=== PATIENT | female | born 1995 | race African-American/Black ===

== ENCOUNTER 2017-01-21 21:33 | Emergency (ER) | payer OTHER ==
--- NOTE | ~2017-01-21 | US106 ---
[facility] A Service of [facility] & [facility] RADIOLOGY TEXT RESULTS PATIENT: TONIE NICOLE LOCATION: [facility] : [birth year] UNIT #: [id number] AGE: [address]: Juma Molina MD SEX: F ORDER DR: [id number] [facility] [address] [place], [place] [address] [id number] E MR#: [id number] Acc #: [id number] NAME: TONIE NICOLE : 1995 SEX: F STUDY DATE/TIME: 01/21/2017 21:09 UNIT: [facility] ROOM: STUDY DESCRIPTION: US Preg Uterus Transvaginal Attending Physician: Juma Molina M.D. Ordering Physician: Juma Molina M.D. Primary Care Physician: Malik Carbone MEDICAL IMAGING REPORT This report is preliminary unless electronic signature is present EXAM ultrasound 01/21/2017 HISTORY 22-year-old female unsure of last menstrual period. Pelvic pain for 3 hours. No bleeding. Quantitative beta HCG 26,995. G5, P4, AB 0. COMPARISON None. FINDINGS Transabdominal imaging was performed for generalized visualization of pelvic structures while transvaginal imaging was performed for more detailed evaluation of the uterus and adnexa. The uterus measures approximately 6.4 x 5.4 x 8.5 cm. An intrauterine gestational sac with surrounding decidual reaction is seen. The gestational sac measures about 1.4 cm. A yolk sac is seen within it measuring about 1.3 cm. A pole with a crown rump length of approximately 4.1 mm is identified. There is a detectable heart rate in the range of 123 beats per minute. Crescentic hypoechoic focus is demonstrated just deep to the gestational sac, thought to represent a small subchorionic hemorrhage, measuring approximately 5 mm in thickness x 2 cm in length. The left ovary measures 3.4 x 1.9 x 3 cm without cystic or solid abnormality and demonstrates normal color and spectral Doppler flow. The right ovary measures 2.1 x 2.5 x 3.3 cm without cystic or solid abnormality and demonstrates normal color and spectral Doppler flow. No pelvic free fluid is identified. IMPRESSION 1. Single viable intrauterine with heart rate in the range of STS. [facility] A Service of [facility] RADIOLOGY TEXT RESULTS PATIENT: TONIE NICOLE LOCATION: [facility] : [birth year] UNIT #: [id number] AGE: [address]: Juma Molina MD SEX: F ORDER DR: 123 beats per minute. Estimated sonographic gestational age 6 weeks 3 days with estimated date of delivery 09/13/2017. 2. Small hypoechoic crescentic collection is seen just deep to the gestational sac and may represent an implantation bleed or small subchorionic hemorrhage measuring 5 mm in thickness x 2 cm in length. 3. Normal sonographic appearance of the ovaries with normal flow to each ovary. 4. No pelvic free fluid. Dictated by... Leda Le M.D. THIS IS AN ELECTRONICALLY VERIFIED REPORT Leda Le M.D. at 01/22/2017 10:03 PM EREN/delia TD: 01/22/2017 05:56 JOB #: [id number] MEDICAL IMAGING REPORT COPY
[2017-01-21 21:25] LABS: BASOPHIL% 0.6 % (0-2.5); EOSINOPHIL# 0.2 X10e3 (0-0.7); EOSINOPHIL% 2.5 % (0.0-7.0); HEMATOCRIT 32.3 % (35.0-45.0); HEMOGLOBIN 10.1 gm/dL (12.0-16.0); LYMPHOCYTE# 2.1 X10e3 (1.0-3.5); LYMPHOCYTE% 29.4 % (17.0-45.0); MEAN CELL VOLUME 74.2 FL (83-96); MEAN CORPUSCULAR HEMOGLOBIN 23.2 PG (28-34); MEAN CORPUSCULAR HGB CONC 31.3 g/dL (30-36); MEAN PLATELET VOLUME 9.3 FL (6.5-11.5); MONOCYTE# 0.5 X10e3 (0-1.0); MONOCYTE% 7.4 % (3.0-12.0); NEUTROPHIL# 4.3 X10e3 (1.5-7.1); NEUTROPHIL% 60.1 % (40-75); PLATELET COUNT 242 X10e3 (140-420); RED BLOOD COUNT 4.35 X10e (3.90-5.30); RED CELL DISTRIBUTION WIDTH 20.7 % (11.0-15.5); WHITE BLOOD COUNT 7.2 X10e3 (4.0-10.5)
[2017-01-21 21:28] LABS: DIFF IND NO
[2017-01-21 21:35] LABS: URINE SOURCE CLEAN CATCH
[2017-01-21 21:39] LABS: URINE APPEARANCE CLOUDY; URINE BILIRUBIN NEG (NEG); URINE BLOOD NEG (NEG); URINE COLOR YELLOW; URINE GLUCOSE NEG (NEG); URINE KETONE NEG (NEG); URINE LEUKOCYTE ESTERASE 1+ (NEG); URINE NITRATE NEG (NEG); URINE PROTEIN NEG (NEG); URINE SPECIFIC GRAVITY 1.024 (1.003-1.035)
[2017-01-21 21:41] LABS: CULTURE INDICATED? YES; URINE BACTERIA AUWI 1+ (NEGATIVE); URINE SQUAMOUS EPITHELIAL CELL FEW /[HPF]
[2017-01-21 21:48] LABS: ALBUMIN SERUM 3.8 g/dL (3.5-5.0); ALKALINE PHOSPHATASE 47 U/L (32-92); ALT (SGPT) 12 U/L (10-40); AMYLASE 14 U/L (0-46); AST (SGOT) 17 U/L (10-42); BILIRUBIN, DIRECT 0.1 mg/dL (0.0-0.2); BILIRUBIN,INDIRECT 0.2 mg/dL (0.0-0.9); BILIRUBIN,TOTAL 0.3 mg/dL (0.2-2.0); BLOOD UREA NITROGEN 6 mg/dL (9-23); CARBON DIOXIDE 26 mmol/L (22-31); CHLORIDE 104 mmol/L (100-111); CREATININE SERUM 0.4 mg/dL (0.6-1.4); GLOM FILT RATE Estimated ABOVE60 mL/min (>60); GLUCOSE FASTING 89 mg/dL (70-110); LIPASE 20 U/L (22-51); POTASSIUM 3.7 mmol/L (3.5-5.1); PROTEIN TOTAL SERUM 7.5 g/dL (6.0-8.3); SODIUM 137 mmol/L (135-145)
[2017-01-24 13:07] LABS: CHLAMYDIA TRACH Detected (Not Detected); N GONOR Not Detected (Not Detected)
== END 2017-01-22 00:35 | disposition home or self-care (01) ==
LOC: CED 21:33
PROVIDERS: Emergency Medicine
DX: O99.89 Other specified diseases and conditions complicating pregnancy, childbirth and the puerperium (principal); R10.9 Unspecified abdominal pain; O99.331 Smoking (tobacco) complicating pregnancy, first trimester; F17.200 Nicotine dependence, unspecified, uncomplicated; Z3A.01 Less than 8 weeks gestation of pregnancy
CPT/HCPCS: 36415; 76817; 80048; 80076; 81003; 82150; 83690; 84702; 84703; 85025; 86900; 86901; 87086; 87491; 87591; 87808; 87905; 96361; 96374; 99284; J2550

== ENCOUNTER 2017-01-29 20:01 | Emergency (ER) | payer OTHER ==
[2017-01-29 19:51] LABS: URINE SOURCE CLEAN CATCH
[2017-01-29 20:03] LABS: URINE APPEARANCE CLEAR; URINE BILIRUBIN NEG (NEG); URINE BLOOD NEG (NEG); URINE COLOR YELLOW; URINE GLUCOSE NEG (NEG); URINE KETONE TRACE (NEG); URINE LEUKOCYTE ESTERASE NEG (NEG); URINE NITRATE NEG (NEG); URINE PROTEIN NEG (NEG); URINE SPECIFIC GRAVITY 1.037 (1.003-1.035)
[2017-01-29 20:06] LABS: CULTURE INDICATED? NO
[2017-01-29 20:11] LABS: INFLUENZA A NEG (NEG); INFLUENZA B NEG (NEG)
== END 2017-01-29 20:28 | disposition home or self-care (01) ==
LOC: CFTX 20:01
PROVIDERS: Nurse Practitioner
DX: J06.9 Acute upper respiratory infection, unspecified (principal); F17.200 Nicotine dependence, unspecified, uncomplicated
CPT/HCPCS: 81003; 84703; 87651; 87804; 99282; 99283